=== PATIENT | male | born 1965 | race Asian ===

== ENCOUNTER 2020-08-03 03:24 | Emergency (ER) | payer BC ==
[~2020-08-03] VITALS: Ht 165.1 cm; Wt 88.6 kg
[2020-08-03] MEDS ORDERED: ALBU8HFA IH (03:43)
[2020-08-03] MEDS ORDERED: 0.9% SODIUM CHLORIDE 15 ML NEB SOLUTION NEB ONE (03:56)
[2020-08-03] MEDS ORDERED: ALBUTEROL SULFATE 5 MG/ML 20 ML NEB SOLN [BULK] NEB ONE (04:00)
[2020-08-03] MEDS ORDERED: IPRATROPIUM BROMIDE 0.5 MG/2.5 ML NEB SOLUTION NEB ONE (04:00)
[2020-08-03] MEDS ORDERED: MethylPREDNISolone SOD SUCC 125 MG/2 ML VIAL IVP ONE (04:00)
[2020-08-03] MEDS ORDERED: MAGNESIUM SULFATE 2 GM/WATER 50 ML IV ONE ×2 (04:00→04:45)
[2020-08-03 04:14] LABS: COVID AG,FIA SOURCE NASOPHARYNGEAL
[2020-08-03 05:46] VITALS: BP 150/84
== END 2020-08-03 05:48 | disposition home or self-care (01) ==
LOC: EMS 03:24
DX: J45.901 Unspecified asthma with (acute) exacerbation (principal); Z20.822 Contact with and (suspected) exposure to COVID-19
CPT/HCPCS: 71045; 87426; 94644; 96365; 96375; 99291; J2930; J3475; J7611